=== PATIENT | female | born 1990 | race Caucasian/White ===

== ENCOUNTER 2016-05-08 12:22 | Emergency (ER) | payer SELFPAY ==
[2016-05-08 12:47] VITALS: BP 127/83
[2016-05-08] MEDS ORDERED: KETOROLAC TROMETHAMINE 60 MG/2 ML SDV IM ONE (12:47)
--- NOTE | 2016-05-08 12:49 | ER Document Report ---
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 Her back is really hurting now. Denies urinary/ bowel incontinence/retention, denies numbness/tingling. Denies trauma or falling. Reports she does a lot of awkward moves that is hard on her back. Denies pmh of back injury, cancers, weight loss. 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 IN LAST 30 DAYS: No - HEENT HEENT: Atraumatic, Normocephalic - NECK Neck: Normal Inspection, Supple. negative: Lymphadenopathy-Left, Lymphadenopathy-Right - RESPIRATORY Respiratory: Breath Sounds Normal, No Respiratory Distress - CARDIOVASCULAR Cardiovascular: Regular Rate, Regular Rhythm - GI/ABDOMEN Gastrointestinal: Abdomen Soft, Abdomen Non-Tender - BACK Back: Normal Inspection - no obvious deformity, c/o entire back ttp from low back to inbetween shoulders. good distal movement and sensation, no weakness. Course - Re-evaluation Re-evalutation: 05/08/16 13:01 pt instructed to fu in one week for recheck, do not dance if still hurting. no s /s cauda equina. Discharge - Discharge Clinical Impression: elevated blood pressure Back pain Qualifiers: Back pain location: low back pain Chronicity: acute Back pain laterality: unspecified Sciatica presence: without sciatica Qualified Code(s): M54.5 - Low back pain Condition: Stable Disposition: HOME, SELF-CARE Instructions: Ice Packs ([facility]), Low Back Pain ([facility]), Muscle Strain ([facility]), Steroid Medication, Muscle Relaxers ([facility]), Anti-Inflammatory Medication ([facility]) Additional Instructions: *You have been evaluated for back pain *Take medication as prescribed *Rest/Ice- heat packs as directed *Follow up with a primary care provider for recheck within one week *Return to ED for worsening condition, changes, needs Prescriptions: Cyclobenzaprine HCl [Flexeril 10 Mg Tablet] 10 mg PO TID #30 tablet Naproxen 500 mg PO BID #20 tablet Prednisone [Deltasone 10 mg Tablet] 10 mg PO ASDIR PRN #21 tablet PRN Reason: Forms: Elevated Blood Pressure, Return to Work
== END 2016-05-08 13:00 | disposition home or self-care (01) ==
LOC: ER 12:22
DX: M54.5 Low back pain (principal); R03.0 Elevated blood-pressure reading, without diagnosis of hypertension; F17.210 Nicotine dependence, cigarettes, uncomplicated
CPT/HCPCS: 99283; 96372; J1885

== ENCOUNTER 2016-05-14 14:40 | Emergency (ER) | payer SELFPAY ==
--- NOTE | 2016-05-14 15:11 | ER Document Report ---
ED Medical Screen (RME) - General Stated Complaint: TOOTH PAIN Notes: Patient is a 25-year-old female presents emergency Department with left cheek swelling and tooth pain since Saturday. Patient is been taking Motrin at home with minimal relief in her symptoms. She denies any chills but admits to feeling warm at [employer] check a temperature at home. Patient states that she broke a tooth about a month ago but then on Saturday was eating popcorn and record. Patient admits to severe pain, swelling as well as cheek swelling difficulty opening her mouth. Patient is able to swallow fluids. Denies any drug use TRAVEL OUTSIDE OF THE U[place] IN LAST 30 DAYS: No - Related Data Allergies/Adverse Reactions: No Known Allergies Allergy (Verified 05/14/16 15:09) Past Medical History - Social History Family history: Reviewed & Not Pertinent Pulmonary Medical History: Reports: Hx Asthma Renal/ Medical History: Reports: Hx Ovarian Cysts. Denies: Hx Peritoneal Dialysis Past Surgical History: Reports: Other - eye surgery - Immunizations Immunizations up to date: Yes Hx Diphtheria, Pertussis, Tetanus Vaccination: Yes - 2012 Physical Exam - Vital signs Vitals: Temp Pulse Resp BP Pulse Ox 98.0 F 97 16 141/74 H 98 05/14/16 15:01 05/14/16 15:01 05/14/16 15:01 05/14/16 15:01 05/14/16 15:01 Course - Vital Signs Vital signs: Temp Pulse Resp BP Pulse Ox 98.0 F 97 16 141/74 H 98 05/14/16 15:01 05/14/16 15:01 05/14/16 15:01 05/14/16 15:01 05/14/16 15:01
[2016-05-14] MEDS ORDERED: OXYCODONE-ACETAMINOPHEN 5-325 MG TABLET PO ONE (15:12)
[2016-05-14 16:23] LABS: ABSOLUTE EOSINOPHILS # (AUTO) 0.2 10^3/uL (0.0-0.6); ABSOLUTE LYMPHOCYTES (AUTO) 3.5 10^3/uL (0.5-4.7); ABSOLUTE MONOCYTES (AUTO) 0.8 10^3/uL (0.1-1.4); ABSOLUTE NEUT (AUTO) 4.9 10^3/uL (1.7-8.2); BASOPHILS % (AUTO) 0.2 % (0-2); EOSINOPHILS % (AUTO) 1.6 % (0-6); HEMATOCRIT 40.9 % (36.0-47.0); HEMOGLOBIN 14.6 g/dL (12.0-15.5); HGB HCT DIFFERENCE 2.9; LYMPHOCYTES % (AUTO) 37.4 % (13-45); MEAN CORPUSCULAR HEMOGLOBIN 34.7 pg (27.0-33.4); MEAN CORPUSCULAR HGB CONC 35.7 g/dL (32.0-36.0); MEAN CORPUSCULAR VOLUME 97 fl (80-97); MONOCYTES % (AUTO) 8.2 % (3-13); RED BLOOD COUNT 4.21 10^6/uL (3.72-5.28); SEGMENTED NEUTROPHILS % (AUTO) 52.6 % (42-78); WHITE BLOOD COUNT 9.3 10^3/uL (4.0-10.5)
[2016-05-14 16:48] LABS: ALANINE AMINOTRANSFERASE 23 U/L (9-52); ALBUMIN 4.6 g/dL (3.5-5.0); ALKALINE PHOSPHATASE 74 U/L (38-126); ANION GAP 9 (5-19); ASPARTATE AMINO TRANSFERASE 18 U/L (14-36); BILIRUBIN,TOTAL 0.9 mg/dL (0.2-1.3); BLOOD UREA NITROGEN 13 mg/dL (7-20); CALCIUM 9.9 mg/dL (8.4-10.2); CARBON DIOXIDE 26 mmol/L (22-30); CHLORIDE 106 mmol/L (98-107); CREATININE RESULT 0.83 mg/dL (0.52-1.25); GLUCOSE 87 mg/dL (75-110); POTASSIUM 4.3 mmol/L (3.6-5.0); SODIUM 140.8 mmol/L (137-145); TOTAL PROTEIN 7.7 g/dL (6.3-8.2)
[2016-05-14 17:23] LABS: APPEARANCE,URINE CLOUDY; BILIRUBIN,URINE NEGATIVE (NEGATIVE); GLUCOSE, URINE NEGATIVE (NEGATIVE); KETONES,URINE NEGATIVE (NEGATIVE); LEUKOCYTE ESTERASE,URINE TRACE (NEGATIVE); NITRITE,URINE NEGATIVE (NEGATIVE); PROTEIN,URINE NEGATIVE (NEGATIVE); URINE SPECIFIC GRAVITY 1.016; UROBILINOGEN,URINE NEGATIVE mg/dL (<2.0)
[2016-05-14] MEDS ORDERED: CLINDAMYCIN 600 MG/D5W RTU 50 ML IV ONE (18:33)
[2016-05-14] MEDS ORDERED: HYDROCODONE/ACETAMINOPHEN 5-325 MG 6 TAB/DSPK PO PRN (20:08)
--- NOTE | 2016-05-14 20:09 | ER Document Report ---
ED General - General Chief Complaint: Toothache Stated Complaint: TOOTH PAIN TRAVEL OUTSIDE OF THE [place] IN LAST 30 DAYS: No - HPI Patient complains to provider of: facial swelling tooth pain Notes: Patient coming in for first swelling tooth pain ongoing for the last to 3 days. Patient states tooth pain prostate tooth #28 with right side facial swelling. No fevers or chills no nausea no vomiting patient denies any recent antibiotics. Patient states unable to follow-up with a dentist recently. Patient states able to eat soft diet and control her secretions. Patient has no drooling is otherwise able to carry on conversation with no changes upon my evaluation. - Related Data Allergies/Adverse Reactions: No Known Allergies Allergy (Verified 05/14/16 15:09) Past Medical History - Social History Smoking Status: Current Every Day Smoker Chew tobacco use (# tins/day): No Frequency of alcohol use: None Drug Abuse: None Family History: CAD - grandmother, Hypertension Patient has suicidal ideation: No Patient has homicidal ideation: No Pulmonary Medical History: Reports: Hx Asthma Renal/ Medical History: Reports: Hx Ovarian Cysts. Denies: Hx Peritoneal Dialysis Past Surgical History: Reports: Other - eye surgery - Immunizations Immunizations up to date: Yes Hx Diphtheria, Pertussis, Tetanus Vaccination: Yes - 2012 Review of Systems - Review of Systems Constitutional: No symptoms reported EENT: Other - Dental pain swelling Cardiovascular: No symptoms reported Respiratory: No symptoms reported Gastrointestinal: No symptoms reported Genitourinary: No symptoms reported Female Genitourinary: No symptoms reported Musculoskeletal: No symptoms reported Skin: No symptoms reported Hematologic/Lymphatic: No symptoms reported Neurological/Psychological: No symptoms reported Physical Exam - Vital signs Vitals: Temp Pulse Resp BP Pulse Ox 98.0 F 97 16 141/74 H 98 05/14/16 15:01 05/14/16 15:01 05/14/16 15:01 05/14/16 15:01 05/14/16 15:01 Interpretation: Normal - General General appearance: Appears well, Alert - HEENT Head: Normocephalic, Atraumatic Eyes: Normal Conjunctiva: Normal Cornea: Normal Pupils: PERRL Notes: Examination of the patient's CT showed diffuse poor dentition however patient does have that tooth #28 fracture tooth with some gingival cellulitis or is no direct abscess formation no drainage. Palpation of the right side of the patient's jaw is tender there is no skin changes no signs of overt cellulitis no palpable lymph nodes nopalpable submandibular glands no signs of any airway compromise - Respiratory Respiratory status: No respiratory distress Chest status: Nontender Breath sounds: Normal Chest palpation: Normal - Cardiovascular Rhythm: Regular Heart sounds: Normal auscultation Murmur: No - Abdominal Inspection: Normal Distension: No distension Bowel sounds: Normal Tenderness: Nontender Organomegaly: No organomegaly - Back Back: Normal, Nontender - Extremities General upper extremity: Normal inspection, Nontender, Normal color, Normal ROM , Normal temperature General lower extremity: Normal inspection, Nontender, Normal color, Normal ROM , Normal temperature, Normal weight bearing. No: Merlin's sign - Neurological Neuro grossly intact: Yes Cognition: Normal Orientation: AAOx4 [place] Coma Scale Eye Opening: Spontaneous [place] Coma Scale Verbal: Oriented [place] Coma Scale Motor: Obeys Commands Michael Coma Scale Total: 15 Speech: Normal Motor strength normal: LUE, RUE, LLE, RLE Sensory: Normal - Psychological Associated symptoms: Normal affect, Normal mood - Skin Skin Temperature: Warm Skin Moisture: Dry Skin Color: Normal Course - Re-evaluation Re-evalutation: 05/14/16 23:26 CT scans concern for infection there is no drainable abscess. Patient was given a dose of IV clindamycin. After calling [facility] I was able to find a oral surgeon at [facility] discussed case follow-up information was given to the patient at this time no need for transfer. Patient was encouraged to take her antibiotics return to the ER symptoms worsen. - Vital Signs Vital signs: Temp Pulse Resp BP Pulse Ox 98.7 F 72 18 128/85 H 100 05/14/16 22:02 05/14/16 22:02 05/14/16 22:02 05/14/16 22:02 05/14/16 22:02 - Laboratory Result Diagrams: 05/14/16 16:10 05/14/16 16:10 Laboratory results interpreted by me: 05/14/16 05/14/16 16:10 16:10 MCH 34.7 H Ur Leukocyte Esterase TRACE H Discharge - Discharge Clinical Impression: Dental infection Condition: Good Disposition: HOME, SELF-CARE Instructions: Clindamycin ([facility]), [facility], Oral Narcotic Medication ([facility]), Dentist Additional Instructions: Please take medications as prescribed. I did discuss your case with the oral maxillofacial surgery at [facility], Dr [facility]. You may use the information to follow-up at their dental school fees may incur. Please take your antibiotics as prescribed. Return to the ER symptoms worsen. Prescriptions: Ondansetron [Zofran Odt 4 mg Tablet] 4 mg PO Q4HP PRN #30 tab.rapdis PRN Reason: Clindamycin HCl [Cleocin 150 mg Capsule] 150 mg PO Q6 #40 capsule Hydrocodone Bit/Acetaminophen [Hydrocodon-Acetaminophen 5-325] 1 each PO Q6 #20 tablet Forms: Return to Work
[2016-05-14 22:04] VITALS: BP 128/85
== END 2016-05-14 22:00 | disposition home or self-care (01) ==
LOC: ER 14:40
DX: K04.7 Periapical abscess without sinus (principal); K08.89 Other specified disorders of teeth and supporting structures; J45.909 Unspecified asthma, uncomplicated; F17.200 Nicotine dependence, unspecified, uncomplicated
CPT/HCPCS: 36415; 70491; 80053; 81001; 81025; 85025; 87040; 96365; 99283

== ENCOUNTER 2016-08-08 08:18 | Emergency (ER) | payer SELFPAY ==
[2016-08-08] MEDS ORDERED: ACETAMINOPHEN 325 MG TABLET PO ONE (08:25)
[2016-08-08] MEDS ORDERED: BUPIVACAINE HCL 0.5 % INJ/PF 30 ML SDV INJ ONE (09:15)
--- NOTE | 2016-08-08 09:36 | ER Document Report ---
ED General - General Chief Complaint: Toothache Stated Complaint: TOOTHACHE Time Seen by Provider: 08/08/16 08:47 Mode of Arrival: Ambulatory Information source: Patient Notes: 25-year-old female presents with complaints of dental pain in the right upper molar. Patient notes has been fractured for a well started hurting over the past few days. denies any fevers or chills TRAVEL OUTSIDE OF THE [place] IN LAST 30 DAYS: No - HPI Onset: Other Onset/Duration: Persistent Quality of pain: Achy Severity: Mild Pain Level: 1 Associated symptoms: Other Exacerbated by: Food Relieved by: Denies Similar symptoms previously: Yes Recently seen / treated by doctor: Yes - Related Data Allergies/Adverse Reactions: No Known Allergies Allergy (Verified 05/14/16 15:09) Past Medical History - Social History Smoking Status: Current Every Day Smoker Cigarette use (# per day): Yes Chew tobacco use (# tins/day): No Smoking Education Provided: No Family History: CAD - grandmother, Hypertension Patient has suicidal ideation: No Patient has homicidal ideation: No Pulmonary Medical History: Reports: Hx Asthma Renal/ Medical History: Reports: Hx Ovarian Cysts. Denies: Hx Peritoneal Dialysis Past Surgical History: Reports: Other - eye surgery - Immunizations Immunizations up to date: Yes Hx Diphtheria, Pertussis, Tetanus Vaccination: Yes - 2012 Review of Systems - Review of Systems Notes: PHYSICAL EXAMINATION: GENERAL: Well-appearing, well-nourished and in no acute distress. HEAD: Atraumatic, normocephalic. EYES: Pupils equal round and reactive to light, extraocular movements intact, conjunctiva are normal. ENT: Right upper molar is fractured no abscesses noted Nares patent, oropharynx clear without exudates. Moist mucous membranes. NECK: Normal range of motion, supple without lymphadenopathy LUNGS: Breath sounds clear to auscultation bilaterally and equal. No wheezes rales or rhonchi. HEART: Regular rate and rhythm without murmurs ABDOMEN: Soft, nontender, nondistended abdomen. No guarding, no rebound. No masses appreciated. Female : deferred Musculoskeletal: Normal range of motion, no pitting or edema. No cyanosis. NEUROLOGICAL: Cranial nerves grossly intact. Normal speech, normal gait. Normal sensory, motor exams PSYCH: Normal mood, normal affect. SKIN: Warm, Dry, normal turgor, no rashes or lesions noted. Physical Exam - Vital signs Vitals: Temp Pulse Resp BP Pulse Ox 98.1 F 88 20 123/79 95 08/08/16 08:26 08/08/16 08:26 08/08/16 08:26 08/08/16 08:26 08/08/16 08:26 Course - Re-evaluation Re-evalutation: 08/08/16 09:36 Patient was given an infraorbital nerve block with complete resolution of pain. She will be discharged home on antibiotics and follow-up with dentistry. Patient states she one and will do so Patient shifted to return if there are any other concerns After performing a Medical Screening Examination, I estimate there is LOW risk for a DEEP SPACE INFECTION (e.g., LEE ANN'S ANGINA OR RETROPHARYNGEAL ABSCESS), MENINGITIS, INTRACRANIAL HEMORRHAGE, or AIRWAY COMPROMISE, thus I consider the discharge disposition reasonable. Also, there is no evidence or peritonitis, sepsis, or toxicity. I have reevaluated this patient multiple times and no significant life threatening changes are noted. The patient and I have discussed the diagnosis and risks, and we agree with discharging home with close follow-up with the understanding that symptoms and presentations can change. We also discussed returning to the Emergency Department immediately if new or worsening symptoms occur. We have discussed the symptoms which are most concerning (e.g., changing or worsening pain, trouble swallowing or breathing, neck stiffness or fever) that necessitate immediate return. - Vital Signs Vital signs: Temp Pulse Resp BP Pulse Ox 98.1 F 88 20 123/79 95 08/08/16 08:26 08/08/16 08:26 08/08/16 08:26 08/08/16 08:26 08/08/16 08:26 Procedures - Additional Procedures infraorbital nerve block Time performed: 09:30 - using 5 mL of 0.5% Sensorcaine with complete resolution of dental pain patient no complication Discharge - Discharge Clinical Impression: Pain, dental Condition: Stable Disposition: HOME, SELF-CARE Instructions: Toothache ([facility]) Additional Instructions: Please follow-up with dentistry for reevaluation Prescriptions: Penicillin V Potassium [Penicillin Vk 500 mg Tablet] 500 mg PO Q6 #40 tablet
[2016-08-08 09:45] VITALS: BP 118/61
== END 2016-08-08 09:45 | disposition home or self-care (01) ==
LOC: ER 08:18
PROC: 3E0T3BZ Introduction of Anesthetic Agent into Peripheral Nerves and Plexi, Percutaneous Approach (ICD-10-PCS; principal; 2016-08-08)
DX: K08.89 Other specified disorders of teeth and supporting structures (principal); F17.210 Nicotine dependence, cigarettes, uncomplicated; J45.909 Unspecified asthma, uncomplicated
CPT/HCPCS: 99282

== ENCOUNTER 2016-09-28 19:18 | Emergency (ER) | payer SELFPAY ==
[2016-09-28] MEDS ORDERED: OXYCODONE-ACETAMINOPHEN 5-325 MG TABLET PO ONE (21:20)
[2016-09-28] MEDS ORDERED: PENICILLIN V POTASSIUM 500 MG TABLET PO ONE (21:20)
[2016-09-28] MEDS ORDERED: IBUPROFEN 800 MG TABLET PO ONE (21:20)
--- NOTE | 2016-09-28 21:22 | ER Document Report ---
HPI - HPI Patient complains to provider of: dental pain Onset: Other - 2 days Onset/Duration: Gradual Quality of pain: Achy Pain Level: 5 Context: Pt complains of dental pain to right upper tooth for the past 2 days. Patient denies any fever or facial swelling. Associated Symptoms: Other - dental pain. denies: Fever Exacerbated by: Denies Relieved by: Denies Similar symptoms previously: Yes Recently seen / treated by doctor: No - ROS ROS below otherwise negative: Yes Systems Reviewed and Negative: Yes All other systems reviewed and negative - CONSTITUTIONAL Constitutional: DENIES: Fever, Chills - EENT EENT: DENIES: Ear Pain Notes: dental - NEURO Neurology: DENIES: Headache - GASTROINTESTINAL Gastrointestinal: DENIES: Patient vomiting - REPRODUCTIVE Reproductive: DENIES: : - MUSCULOSKELETAL Musculoskeletal: DENIES: Back Pain, Neck Pain - DERM Skin Color: Normal Skin Problems: None Past Medical History - General Information source: Patient - Social History Smoking Status: Current Every Day Smoker Frequency of alcohol use: None Drug Abuse: None 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 Denies: Hx Peritoneal Dialysis Past Surgical History: Reports: Other - eye surgery - Immunizations Immunizations up to date: Yes Hx Diphtheria, Pertussis, Tetanus Vaccination: Yes - 2013 Vertical Provider Document - CONSTITUTIONAL Agree With Documented VS: Yes Exam Limitations: No Limitations General Appearance: WD/WN, No Apparent Distress - INFECTION CONTROL TRAVEL OUTSIDE OF THE [place] IN LAST 30 DAYS: No - HEENT HEENT: Atraumatic, Normocephalic Mouth Diagram: 1 - tenderness, dental decay, no trismus - NECK Neck: Normal Inspection, Supple. negative: Lymphadenopathy-Left, Lymphadenopathy-Right - RESPIRATORY Respiratory: Breath Sounds Normal, No Respiratory Distress O2 Sat by Pulse Oximetry: 99 - CARDIOVASCULAR Cardiovascular: Regular Rate, Regular Rhythm - MUSCULOSKELETAL/EXTREMETIES Musculoskeletal/Extremeties: MAEW - NEURO Level of Consciousness: Awake, Alert, Appropriate Motor/Sensory: No Motor Deficit - DERM Integumentary: Warm, Dry, No Rash Course - Vital Signs Vital signs: Temp Pulse Resp BP Pulse Ox 98.5 F 105 H 18 126/78 H 99 09/28/16 19:33 09/28/16 19:33 09/28/16 19:33 09/28/16 19:33 09/28/16 19:33 Discharge - Discharge Clinical Impression: Toothache Condition: Stable Disposition: HOME, SELF-CARE Instructions: Oral Narcotic Medication ([facility]), Toothache ([facility]), Penicillin V K ( [facility]) Additional Instructions: Return immediately for any new or worsening symptoms Followup with your primary care provider, call tomorrow to make a followup appointment Follow-up with the dental care provider, call Saturday for an appointment Prescriptions: Acetaminophen with Codeine [Acetaminophen-Cod #3 Tablet] 1 each PO Q6 PRN #15 tablet PRN Reason: Naproxen [Naprosyn 250 Nmg Tablet] 1 tab PO BID #14 tablet Penicillin V Potassium [Penicillin Vk 500 mg Tablet] 500 mg PO BID #20 tablet Referrals: [facility] [Provider Group] - Follow up as needed
[2016-09-28 21:29] VITALS: BP 114/73
== END 2016-09-28 21:35 | disposition home or self-care (01) ==
LOC: ER 19:18
DX: K02.9 Dental caries, unspecified (principal); K08.89 Other specified disorders of teeth and supporting structures; J45.909 Unspecified asthma, uncomplicated; F17.200 Nicotine dependence, unspecified, uncomplicated
CPT/HCPCS: 99282

== ENCOUNTER 2017-10-28 23:37 | Emergency (ER) | payer SELFPAY ==
[2017-10-28 23:45] VITALS: BP 130/81
[2017-10-29] MEDS ORDERED: NAPROXEN 250 MG TABLET PO ONE (00:41)
--- NOTE | 2017-10-29 00:41 | ER Document Report ---
ED General - General Chief Complaint: Leg Pain Stated Complaint: LEFT LEG PAIN Time Seen by Provider: 10/29/17 00:23 TRAVEL OUTSIDE OF THE [place] IN LAST 30 DAYS: No - HPI Notes: 27-year-old female who presents with back and leg pain. 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 Couple weeks ago she had injured her leg and felt a pop near her right distal thigh. She improved slightly but then reinjured it again over the last day or 2. Also complains of left lower back pain that radiates down her left leg. States sometimes her big toe goes numb if she lays in bed for a while the same position. No other injury. No bowel or bladder dysfunction, no unplanned weight loss, no fever, chills or sweats. No other modifying factors, no other associated symptoms, no other provocative or palliative factors. - Related Data Allergies/Adverse Reactions: No Known Allergies Allergy (Verified 02/05/17 02:13) Past Medical History - Social History Smoking Status: Smoker,Current Status Unk Family History: CAD - grandmother, Hypertension Pulmonary Medical History: Reports: Hx Asthma Renal/ Medical History: Reports: Hx Ovarian Cysts. Denies: Hx Peritoneal Dialysis Past Surgical History: Reports: Other - eye surgery - Immunizations Immunizations up to date: Yes Hx Diphtheria, Pertussis, Tetanus Vaccination: Yes - 2012 Review of Systems - Review of Systems Notes: Review of systems as in history of present illness, otherwise no significant headache, chest pain, abdominal pain. Physical Exam - Vital signs Vitals: Temp Pulse Resp BP Pulse Ox 98.4 F 65 16 130/81 H 98 10/28/17 23:45 10/28/17 23:45 10/28/17 23:45 10/28/17 23:45 10/28/17 23:45 - Notes Notes: General: Well devloped, no acute distress. HEENT: Normocephalic, atraumatic. Pupils equal round reactive to light. Mucosa moist. No JVD. Chest: No trauma, normal excursion. Respiratory: Good air exchange, normal excursion. Cardiac: Regular rhythm Abdomen: Soft, benign. Nondistended. Back: No asymmetry or gross abnormality. Moderate left paralumbar tenderness. Motor: Grossly normal power and tone. Mood by pain in flexion and extension at the lower extremity knee and hip on the left Neurologic: Alert, nonfocal. DTRs 2+ symmetric, sensation is intact and symmetric in lower extremities when I evaluated. Vascular: Well perfused Skin: No petechiae or purpura Remedies: Muscular tenderness about the distal hamstrings insertion Course - Re-evaluation Re-evalutation: 10/29/17 01:02 Appearing female the after mentioned symptoms with regard to her back pain, may be lumbar strain versus disc disease. With regard to her leg, I see no bony point tenderness, no ligamentous laxity or instability. Suspect some type of hamstring strain. Will treat with steroids, Flexeril, NSAIDs. Will treat with knee immobilizer crutches for comfort. Outpatient follow-up. May benefit from PT versus orthopedic surgery follow-up. - Vital Signs Vital signs: Temp Pulse Resp BP Pulse Ox 98.4 F 65 16 130/81 H 98 10/28/17 23:45 10/28/17 23:45 10/28/17 23:45 10/28/17 23:45 10/28/17 23:45 Discharge - Discharge Clinical Impression: Back pain Qualifiers: Back pain location: low back pain Chronicity: acute Back pain laterality: left Sciatica presence: with sciatica Sciatica laterality: sciatica of left side Qualified Code(s): M54.42 - Lumbago with sciatica, left side Hamstring muscle strain Qualifiers: Encounter type: initial encounter Laterality: left Qualified Code(s): S76.312A - Strain of muscle, fascia and tendon of the posterior muscle group at thigh level, left thigh, initial encounter Instructions: Low Back Pain ([facility]), Muscle Strain ([facility]), Tendon Strain ([facility]) Prescriptions: Cyclobenzaprine HCl [Flexeril 10 mg Tablet] 10 mg PO TIDP PRN #15 tab NS PRN Reason: Methylprednisolone [Medrol Dosepack (4 mg/Tab) 21 Tab/Dosepak] 4 mg PO ASDIR PRN #21 tab.ds.pk PRN Reason: Naproxen 500 mg PO Q12 PRN #12 tablet PRN Reason:
== END 2017-10-29 01:13 | disposition home or self-care (01) ==
LOC: ER 23:37
DX: M54.42 Lumbago with sciatica, left side (principal); R20.0 Anesthesia of skin; J45.909 Unspecified asthma, uncomplicated
CPT/HCPCS: 99283; L1830

== ENCOUNTER 2018-05-07 20:09 | Emergency (ER) | payer SELFPAY | END 2018-05-07 21:13 | disposition left against medical advice (07) | LOC: ER 20:09 | DX: Z53.21 Procedure and treatment not carried out due to patient leaving prior to being seen by health care provider (principal); R10.9 Unspecified abdominal pain ==

== ENCOUNTER 2019-03-15 08:16 | Emergency (ER) | payer SELFPAY ==
[2019-03-15 08:26] VITALS: BP 128/83
--- NOTE | 2019-03-15 09:59 | ER Document Report ---
ED Skin Rash/Insect Bite/Abscs - General Chief Complaint: Rash Stated Complaint: RASH Time Seen by Provider: 03/15/19 09:59 Primary Care Provider: CHELY BURT DO [ACTIVE STAFF] - Follow up as needed (for dermatology follow up) TRAVEL OUTSIDE OF THE [place] IN LAST 30 DAYS: No - HPI Notes: 28 year old female to the ED with C/O itchy rash to bilateral webbing of her hands that has been ongoing this week. She just moved into a new home this week and she states she didn't realize how dirty it was. She started to have itching after moving in. Denies any fevers, chills, NVD, abd pain, headache, chest pain, SOB. - Related Data Allergies/Adverse Reactions: No Known Allergies Allergy (Verified 03/15/19 08:37) Home Medications: benadryl Past Medical History - General Information source: Patient - Social History Smoking Status: Current Every Day Smoker Chew tobacco use (# tins/day): No Frequency of alcohol use: None Drug Abuse: None Family History: CAD - grandmother, Hypertension Patient has suicidal ideation: No Patient has homicidal ideation: No Pulmonary Medical History: Reports: Hx Asthma Renal/ Medical History: Reports: Hx Ovarian Cysts. Denies: Hx Peritoneal Dialysis Past Surgical History: Reports: Other - eye surgery - Immunizations Immunizations up to date: Yes Hx Diphtheria, Pertussis, Tetanus Vaccination: Yes - 2012 Review of Systems - Review of Systems Constitutional: denies: Chills, Fever EENT: No symptoms reported Cardiovascular: denies: Chest pain, Dyspnea, Syncope, Dizziness, Lightheaded Respiratory: denies: Cough, Short of breath Gastrointestinal: denies: Abdominal pain, Diarrhea, Nausea, Vomiting Genitourinary: No symptoms reported Skin: See HPI, Rash Hematologic/Lymphatic: No symptoms reported Neurological/Psychological: No symptoms reported -: Yes All other systems reviewed and negative Physical Exam - Vital signs Vitals: Temp Pulse Resp BP Pulse Ox 98.5 F 96 18 128/83 H 96 03/15/19 08:25 03/15/19 08:25 03/15/19 08:25 03/15/19 08:25 03/15/19 08:25 Interpretation: Normal - General General appearance: Appears well, Alert - HEENT Head: Normocephalic, Atraumatic Eyes: Normal Pupils: PERRL - Respiratory Respiratory status: No respiratory distress Chest status: Nontender Breath sounds: Normal Chest palpation: Normal - Cardiovascular Rhythm: Regular Heart sounds: Normal auscultation Murmur: No - Psychological Associated symptoms: Normal affect, Normal mood - Skin Skin Temperature: Warm Skin Moisture: Dry Skin Color: Normal Skin irregularity: Rash - there are several burrowing papules to the bilateral hands to the webbing. There is no streaking erythema. There are no vesicles. Noted excoriations to the hands. Course - Re-evaluation Re-evalutation: Impression: Scabies. Will start on Permethrin cream. Have patient apply today and leave on for 8-14 hours and then rinse off. If symptoms persist, will have her reapply. Encouraged her to either have home extensively cleansed or find [facility] housing. Patient agrees with the plan. - Vital Signs Vital signs: Temp Pulse Resp BP Pulse Ox 98.5 F 96 18 128/83 H 96 03/15/19 08:37 03/15/19 08:25 03/15/19 08:37 03/15/19 08:25 03/15/19 08:37 Discharge - Discharge Clinical Impression: Scabies Condition: Stable Disposition: HOME, SELF-CARE Instructions: Scabies ([facility]) Additional Instructions: USE PERMETHRIN CREAM WITHOUT FAIL. FOLLOW UP WITH DERMATOLOGY IF SYMPTOMS PERSIST BEYOND ONE WEEK AND TWO USES OF THE PERMETHRIN CREAM. Forms: Return to Work Referrals: CHELY BURT DO [ACTIVE STAFF] - Follow up as needed (for dermatology follow up)
[2019-03-16] MEDS ORDERED: PERMETHRIN 5% CREAM 60 GM TP ONE (10:50)
== END 2019-03-15 11:06 | disposition home or self-care (01) ==
LOC: ER 08:16
DX: B86 Scabies (principal); F17.200 Nicotine dependence, unspecified, uncomplicated; J45.909 Unspecified asthma, uncomplicated
CPT/HCPCS: 99282

== ENCOUNTER 2019-08-05 13:09 | Emergency (ER) | payer SELFPAY ==
[2019-08-05] MEDS ORDERED: KETOROLAC TROMETHAMINE INJ/PF 30 MG/1 ML SDV IV ONE (13:30)
--- NOTE | 2019-08-05 13:31 | ER Document Report ---
ED Medical Screen (RME) - General Chief Complaint: Flank Pain Stated Complaint: RIGHT SIDE PAIN Time Seen by Provider: 08/05/19 13:27 Mode of Arrival: Ambulatory Information source: Patient Notes: Patient presents with left flank pain that started yesterday. Patient denies any fever, nausea vomiting or diarrhea. Patient denies any urinary symptoms. I have greeted and performed a rapid initial assessment of this patient. A comprehensive ED assessment and evaluation of the patient, analysis of test results and completion of the medical decision making process will be conducted by additional ED providers. TRAVEL OUTSIDE OF THE [place] IN LAST 30 DAYS: No - Related Data Allergies/Adverse Reactions: No Known Allergies Allergy (Verified 08/05/19 13:27) Home Medications: flonase, benadryl Past Medical History - Social History Chew tobacco use (# tins/day): No Frequency of alcohol use: None Drug Abuse: Marijuana Family history: Reviewed & Not Pertinent Pulmonary Medical History: Reports: Hx Asthma Renal/ Medical History: Reports: Hx Ovarian Cysts. Denies: Hx Peritoneal Dialysis Past Surgical History: Reports: Other - eye surgery - Immunizations Immunizations up to date: Yes Hx Diphtheria, Pertussis, Tetanus Vaccination: Yes - 2012 Physical Exam - Vital signs Vitals: Temp Pulse Resp BP Pulse Ox 98.0 F 82 18 127/84 H 97 08/05/19 13:12 08/05/19 13:12 08/05/19 13:12 08/05/19 13:12 08/05/19 13:12 - Back Back: CVA tenderness - left Course - Vital Signs Vital signs: Temp Pulse Resp BP Pulse Ox 98.0 F 82 18 127/84 H 97 08/05/19 13:28 08/05/19 13:12 08/05/19 13:12 08/05/19 13:12 08/05/19 13:12
[2019-08-05 13:54] LABS: ABSOLUTE EOSINOPHILS # (AUTO) 0.1 10^3/uL (0.0-0.6); ABSOLUTE LYMPHOCYTES (AUTO) 2.2 10^3/uL (0.5-4.7); ABSOLUTE MONOCYTES (AUTO) 0.8 10^3/uL (0.1-1.4); ABSOLUTE NEUT (AUTO) 8.6 10^3/uL (1.7-8.2); BASOPHILS % (AUTO) 0.4 % (0-2); HEMATOCRIT 41.1 % (36.0-47.0); HEMOGLOBIN 14.7 g/dL (12.0-15.5); LYMPHOCYTES % (AUTO) 18.4 % (13-45); MEAN CORPUSCULAR HEMOGLOBIN 34.3 pg (27.0-33.4); MEAN CORPUSCULAR HGB CONC 35.9 g/dL (32.0-36.0); MEAN CORPUSCULAR VOLUME 96 fl (80-97); MONOCYTES % (AUTO) 7.2 % (3-13); PLATELET COUNT 277 10^3/uL (150-450); RED CELL DISTRIBUTION WIDTH 12.2 % (11.5-14.0); TOTAL CELLS COUNTED % (AUTO) 100 %; WHITE BLOOD COUNT 11.7 10^3/uL (4.0-10.5)
[2019-08-05 13:57] LABS: APPEARANCE,URINE SLIGHTLY-CLOUDY; BILIRUBIN,URINE NEGATIVE (NEGATIVE); COLOR,URINE YELLOW; GLUCOSE, URINE NEGATIVE (NEGATIVE); KETONES,URINE NEGATIVE (NEGATIVE); LEUKOCYTE ESTERASE,URINE SMALL (NEGATIVE); NITRITE,URINE POSITIVE (NEGATIVE); PROTEIN,URINE 30 mg/dL (NEGATIVE); URINE SPECIFIC GRAVITY 1.011; UROBILINOGEN,URINE NEGATIVE mg/dL (<2.0)
[2019-08-05 14:09] LABS: ALBUMIN 4.6 g/dL (3.5-5.0); ALKALINE PHOSPHATASE 58 U/L (38-126); ANION GAP 9 (5-19); ASPARTATE AMINO TRANSFERASE 24 U/L (14-36); BILIRUBIN,TOTAL 0.9 mg/dL (0.2-1.3); BLOOD UREA NITROGEN 11 mg/dL (7-20); CALCIUM 9.7 mg/dL (8.4-10.2); CARBON DIOXIDE 24 mmol/L (22-30); CHLORIDE 106 mmol/L (98-107); GLUCOSE 102 mg/dL (75-110); TOTAL PROTEIN 8.2 g/dL (6.3-8.2)
[2019-08-05] MEDS ORDERED: CEFTRIAXONE 1 GM/D5W RTU 1 GM/50 ML RTUPB IV ONE (14:37)
--- NOTE | 2019-08-05 14:53 | ER Document Report ---
ED General - General Chief Complaint: Flank Pain Stated Complaint: RIGHT SIDE PAIN Time Seen by Provider: 08/05/19 13:27 Mode of Arrival: Ambulatory TRAVEL OUTSIDE OF THE [place] IN LAST 30 DAYS: No - HPI Notes: Patient is a 28-year-old female who presents to the emergency department for evaluation of left flank pain. Started yesterday. She states it was gradual in onset, this morning it got much worse. She is never had any pain like this in the past. She rates it a 9 out of 10. She denies any fevers or chills. No nausea or vomiting. No urinary symptoms. She did have some constipation, but states she had a normal bowel movement yesterday. She denies any possibility of . - Related Data Allergies/Adverse Reactions: No Known Allergies Allergy (Verified 08/05/19 13:27) Home Medications: flonase, benadryl Past Medical History - General Information source: Patient - Social History Smoking Status: Current Every Day Smoker Chew tobacco use (# tins/day): No Frequency of alcohol use: None Drug Abuse: Marijuana Family History: CAD - grandmother, Hypertension, Other - Kidney stone Patient has homicidal ideation: No Pulmonary Medical History: Reports: Hx Asthma Renal/ Medical History: Reports: Hx Ovarian Cysts. Denies: Hx Peritoneal Dialysis Past Surgical History: Reports: Other - eye surgery - Immunizations Immunizations up to date: Yes Hx Diphtheria, Pertussis, Tetanus Vaccination: Yes - 2012 Review of Systems - Review of Systems Genitourinary: See HPI -: Yes All other systems reviewed and negative Physical Exam - Vital signs Vitals: Temp Pulse Resp BP Pulse Ox 98.0 F 82 18 127/84 H 97 08/05/19 13:12 08/05/19 13:12 08/05/19 13:12 08/05/19 13:12 08/05/19 13:12 - Notes Notes: This is a 28-year-old female appears her stated age in a mild amount of distress. She is tearful. Vital signs reviewed, please refer to chart. Head is normocephalic, atraumatic. Pupils equal round, reactive to light. Neck is supple without meningismus. Heart is regular rate and rhythm. Lungs are clear to auscultation bilaterally. Abdomen is soft, mildly tender in the left upper quadrant without rebound or guarding positive left-sided CVA tenderness. Bandar, normoactive bowel sounds throughout. Extremities without cyanosis, clubbing. Posterior calves are nontender. Peripheral pulses are equal. Skin is warm and dry. Patient is awake, alert, neurological exam is nonfocal. Course - Re-evaluation Re-evalutation: 08/05/19 14:52 Patient presents to the emergency department for evaluation. She had laboratory investigations and imaging is ordered through triage. It does seem that she has urinary tract infection, urine was sent for culture. Rocephin was ordered. I am concerned about a con commitment stone in the light of the patient's significant pain. If this is simple pyelonephritis, I do believe it is reasonab le to discharge the patient home on oral antibiotics, she has no other significant medical comorbidities. We will try and help her pain with Toradol, patient is stable at this time, we will continue to monitor. 08/05/19 16:[address] scan fails to reveal any signs of obstructive stone or hydro nephrosis. I suspect this is all pyelonephritis. Again she has no significant comorbidities, I do believe that outpatient treatment is appropriate. We will send her home with antibiotics. She is to follow-up with primary care provider this week, return to the ED with worsening or new concerning symptoms of any sort. The patient is reminded that she should have her urine rechecked next week. She is feeling improved and is amenable to discharge. - Vital Signs Vital signs: Temp Pulse Resp BP Pulse Ox 98.0 F 82 18 127/84 H 97 08/05/19 13:28 08/05/19 13:12 08/05/19 13:12 08/05/19 13:12 08/05/19 13:12 - Laboratory Result Diagrams: 08/05/19 13:30 08/05/19 13:30 Laboratory results interpreted by me: 08/05/19 08/05/19 13:30 13:30 WBC 11.7 H MCH 34.3 H Absolute Neuts (auto) 8.6 H Urine Protein 30 H Urine Blood MODERATE H Urine Nitrite POSITIVE H Ur Leukocyte Esterase SMALL H - Diagnostic Test Radiology reviewed: Reports reviewed Radiology results interpreted by me: 08/05/19 16:26 Abdomen/Pelvis CT 08/05/19 14:37 IMPRESSION: NO SIGNIFICANT OR ACUTE PROCESS IN THE ABDOMEN OR PELVIS. Discharge - Discharge Clinical Impression: Pyelonephritis Condition: Stable Disposition: HOME, SELF-CARE Instructions: Levofloxacin, Toradol Injection ([facility]), Pyelonephritis ([facility]) Additional Instructions: Take all the antibiotic as prescribed until gone. Have your urine rechecked next week. Tylenol or ibuprofen at home as needed for pain. If you do not see improvement in the next 48 hours, you develop fevers, vomiting, or any other new or concerning symptoms, please return immediately to the ER for further evaluation. Otherwise, follow-up with your primary care provider next week.
[2019-08-05] MEDS ORDERED: MORPHINE SULFATE 10 MG/ML INJ IV ONE (15:56)
[2019-08-05] MEDS ORDERED: ONDANSETRON HCL INJ/PF 4 MG/2 ML SDV IV ONE (15:56)
--- NOTE | 2019-08-05 15:56 | RADIOLOGY REPORT (SQ) ---
EXAM DESCRIPTION: CT ABD/PELVIS NO ORAL OR IV IMAGES COMPLETED DATE/TIME: 08/05/2019 3:38 pm REASON FOR STUDY: L flank pain COMPARISON: CT abdomen pelvis 08/16/2008 TECHNIQUE: CT scan of the abdomen and pelvis performed without intravenous or oral contrast. Images reviewed with lung, soft tissue, and bone windows. Reconstructed coronal and sagittal MPR images revi ewed. All images stored on PACS. All CT scanners at this facility use dose modulation, iterative reconstruction, and/or weight based d osing when appropriate to reduce radiation dose to as low as reasonably achievable (ALARA). [facility]: Dose Right [facility]: CareDose [facility]: Dose Right [facility]: Teradose 4D [facility]: [employer] RADIATION DOSE: CT Rad equipment meets quality standard of care and radiation dose reduction techniq ues were employed. CTDIvol: 10.8 mGy. DLP: 569 mGy-cm.mGy. LIMITATIONS: None. FINDINGS: LOWER CHEST: No significant findings. No nodules or infiltrates. NON-CONTRASTED LIVER, SPLEEN, ADRENALS: Evaluation limited by lack of IV contrast. No identified sign ificant masses. PANCREAS: No masses. No peripancreatic inflammatory changes. GALLBLADDER: No identified stones by CT criteria. No inflammatory changes to suggest cholecystitis. RIGHT KIDNEY AND URETER: No suspicious masses. Assessment limited by lack of IV contrast. No signif icant calcifications. No hydronephrosis or hydroureter. LEFT KIDNEY AND URETER: No suspicious masses. Assessment limited by lack of IV contrast. No signifi cant calcifications. No hydronephrosis or hydroureter. AORTA AND RETROPERITONEUM: No aneurysm. No retroperitoneal masses or adenopathy. BOWEL AND PERITONEAL CAVITY: No obvious masses or inflammatory changes. No free fluid. APPENDIX: Normal. PELVIS, BLADDER, AND ABDOMINAL WALL:No abnormal masses. No free fluid. Bladder normal. BONES: No significant findings. OTHER: No other significant finding. IMPRESSION: NO SIGNIFICANT OR ACUTE PROCESS IN THE ABDOMEN OR PELVIS. COMMENT: Quality ID # [id number]: Final reports with documentation of one or more dose reduction techniques (e.g., Automated exposure control, adjustment of the mA and/or kV according to patient size, use of iterative reconstruction technique) TECHNICAL DOCUMENTATION: JOB ID: [id number] 2010 [employer]- All Rights Reserved Reading location - IP/workstation name: [email or web address]
[2019-08-05 17:27] VITALS: BP 124/74
== END 2019-08-05 17:25 | disposition home or self-care (01) ==
LOC: ER 13:09
DX: N12 Tubulo-interstitial nephritis, not specified as acute or chronic (principal); R10.9 Unspecified abdominal pain; F17.200 Nicotine dependence, unspecified, uncomplicated
CPT/HCPCS: 99284; 96372; 96361; 96374; 96375; 36415; 87086; 84703; 85025; 87088; 80053; 81001; 74176; J1885; J2270; J2405; J0696; 87186

== ENCOUNTER 2019-10-27 20:28 | Emergency (ER) | payer SELFPAY ==
--- NOTE | 2019-10-27 22:22 | ER Document Report ---
ED Medical Screen (RME) - General Chief Complaint: Flank Pain Stated Complaint: BACK AND FLANK PAIN Time Seen by Provider: 10/27/19 22:20 Mode of Arrival: Ambulatory Information source: Patient Notes: 29-year-old female presented to ED for complaint of right flank pain. She states this started last night. She states she was having a hard time sleeping. She states she was seen recently for left sided flank pain and she told was told she had a urinary tract infection but did not get the antibiotic because it was too expensive and she could not afford it. 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 She states does smoke 1/2 pack of cigarettes does not drink alcohol but does smoke weed. She states her menstrual period was a month ago. She is alert oriented respirations regular nonlabored speaking in full sentences. I have greeted and performed a rapid initial assessment of this patient. A comprehensive ED assessment and evaluation of the patient, analysis of test results and completion of medical decision making process will be conducted by an additional ED providers. TRAVEL OUTSIDE OF THE [place] IN LAST 30 DAYS: No - Related Data Allergies/Adverse Reactions: No Known Allergies Allergy (Verified 08/05/19 13:27) Past Medical History - Social History Family history: Reviewed & Not Pertinent Pulmonary Medical History: Reports: Hx Asthma Renal/ Medical History: Reports: Hx Ovarian Cysts. Denies: Hx Peritoneal Dialysis Past Surgical History: Reports: Other - eye surgery - Immunizations Immunizations up to date: Yes Hx Diphtheria, Pertussis, Tetanus Vaccination: Yes - 2012 Physical Exam - Vital signs Vitals: Temp Pulse Resp BP Pulse Ox 99.6 F 94 20 142/78 H 98 10/27/19 20:50 10/27/19 20:50 10/27/19 20:50 10/27/19 20:50 10/27/19 20:50 Course - Vital Signs Vital signs: Temp Pulse Resp BP Pulse Ox 99.6 F 94 20 142/78 H 98 10/27/19 20:50 10/27/19 20:50 10/27/19 20:50 10/27/19 20:50 10/27/19 20:50
[2019-10-27] MEDS ORDERED: ONDANSETRON 4 MG TAB.RAPDIS PO ONE (22:25)
[2019-10-27 23:18] LABS: ABSOLUTE LYMPHOCYTES (AUTO) 1.8 10^3/uL (0.5-4.7); ABSOLUTE NEUT (AUTO) 9.5 10^3/uL (1.7-8.2); BASOPHILS % (AUTO) 0.2 % (0-2); EOSINOPHILS % (AUTO) 0.2 % (0-6); HEMATOCRIT 41.3 % (36.0-47.0); HEMOGLOBIN 14.5 g/dL (12.0-15.5); LYMPHOCYTES % (AUTO) 14.8 % (13-45); MEAN CORPUSCULAR HEMOGLOBIN 33.8 pg (27.0-33.4); MEAN CORPUSCULAR HGB CONC 35.1 g/dL (32.0-36.0); MEAN CORPUSCULAR VOLUME 97 fl (80-97); MONOCYTES % (AUTO) 8.3 % (3-13); PLATELET COUNT 262 10^3/uL (150-450); RED BLOOD COUNT 4.28 10^6/uL (3.72-5.28); RED CELL DISTRIBUTION WIDTH 12.3 % (11.5-14.0); SEGMENTED NEUTROPHILS % (AUTO) 76.5 % (42-78); TOTAL CELLS COUNTED % (AUTO) 100 %; WHITE BLOOD COUNT 12.4 10^3/uL (4.0-10.5)
[2019-10-27 23:27] LABS: APPEARANCE,URINE CLOUDY; BILIRUBIN,URINE NEGATIVE (NEGATIVE); COLOR,URINE YELLOW; GLUCOSE, URINE NEGATIVE (NEGATIVE); KETONES,URINE 80 mg/dL (NEGATIVE); LEUKOCYTE ESTERASE,URINE LARGE (NEGATIVE); NITRITE,URINE POSITIVE (NEGATIVE); PROTEIN,URINE 30 mg/dL (NEGATIVE); URINE SPECIFIC GRAVITY 1.014; UROBILINOGEN,URINE NEGATIVE mg/dL (<2.0)
[2019-10-27 23:42] LABS: ALBUMIN 4.5 g/dL (3.5-5.0); ALKALINE PHOSPHATASE 57 U/L (38-126); ANION GAP 6 (5-19); ASPARTATE AMINO TRANSFERASE 21 U/L (14-36); BILIRUBIN,TOTAL 1.4 mg/dL (0.2-1.3); BLOOD UREA NITROGEN 12 mg/dL (7-20); CALCIUM 9.6 mg/dL (8.4-10.2); CARBON DIOXIDE 24 mmol/L (22-30); CHLORIDE 104 mmol/L (98-107); GLUCOSE 99 mg/dL (75-110); TOTAL PROTEIN 7.8 g/dL (6.3-8.2)
[2019-10-28] MEDS ORDERED: LIDOCAINE 1% INJ-PF (10 MG/ML) 30 ML SDV IM ONE (03:14)
[2019-10-28] MEDS ORDERED: CEFTRIAXONE INJ 1000 MG VIAL IM ONE (03:15)
[2019-10-28] MEDS ORDERED: HYDROCODONE/ACETAMINOPHEN 5-325 MG (6 TAB/ER DISP) PO PRN (03:51)
[2019-10-28 03:53] VITALS: BP 124/81
--- NOTE | 2019-10-28 03:54 | ER Document Report ---
ED GI/ - General Chief Complaint: Flank Pain Stated Complaint: BACK AND FLANK PAIN Time Seen by Provider: 10/27/19 22:20 Mode of Arrival: Ambulatory Information source: Patient Notes: Otherwise healthy 29-year-old female presents the emergency department concern for right flank pain. She states pain started last night. She reports that she had a recent diagnosis of urinary tract infection but never got her antibiotic filled and she states it was too expensive. She denies any fever, chills, nausea, vomiting or diarrhea. TRAVEL OUTSIDE OF THE [place] IN LAST 30 DAYS: No - Related Data Allergies/Adverse Reactions: No Known Allergies Allergy (Verified 08/05/19 13:27) Past Medical History - General Information source: Patient - Social History Smoking Status: Current Every Day Smoker Frequency of alcohol use: None Drug Abuse: Marijuana Family History: CAD - grandmother, Hypertension, Other - Kidney stone Patient has homicidal ideation: No Pulmonary Medical History: Reports: Hx Asthma Renal/ Medical History: Reports: Hx Ovarian Cysts. Denies: Hx Peritoneal Dialysis Past Surgical History: Reports: Other - eye surgery - Immunizations Immunizations up to date: Yes Hx Diphtheria, Pertussis, Tetanus Vaccination: Yes - 2012 Review of Systems - Review of Systems Constitutional: denies: Chills, Fever EENT: No symptoms reported Cardiovascular: No symptoms reported Respiratory: No symptoms reported Gastrointestinal: No symptoms reported Genitourinary: Dysuria, Flank pain Female Genitourinary: No symptoms reported Musculoskeletal: No symptoms reported Skin: No symptoms reported Hematologic/Lymphatic: No symptoms reported Neurological/Psychological: No symptoms reported Physical Exam - Vital signs Vitals: Temp Pulse Resp BP Pulse Ox 99.6 F 94 20 142/78 H 98 10/27/19 20:50 10/27/19 20:50 10/27/19 20:50 10/27/19 20:50 10/27/19 20:50 - Notes Notes: PHYSICAL EXAMINATION: GENERAL: Well-appearing, well-nourished and in no acute distress. HEAD: Atraumatic, normocephalic. EYES: Pupils equal round and reactive to light, extraocular movements intact, conjunctiva are normal. ENT: Nares patent, oropharynx clear without exudates. Moist mucous membranes. NECK: Normal range of motion, supple without lymphadenopathy LUNGS: Breath sounds clear to auscultation bilaterally and equal. No wheezes rales or rhonchi. HEART: Regular rate and rhythm without murmurs ABDOMEN: Soft, nontender, nondistended abdomen. No guarding, no rebound. No masses appreciated. Female : Right CVA tenderness. Musculoskeletal: Normal range of motion, no pitting or edema. No cyanosis. NEUROLOGICAL: Cranial nerves grossly intact. Normal speech, normal gait. Normal sensory, motor exams PSYCH: Normal mood, normal affect. SKIN: Warm, Dry, normal turgor, no rashes or lesions noted. Course - Re-evaluation Re-evalutation: Laboratory 10/27/19 10/27/19 10/27/19 22:53 22:53 22:53 WBC 12.4 H RBC 4.28 Hgb 14.5 Hct 41.3 MCV 97 MCH 33.8 H MCHC 35.1 RDW 12.3 Plt Count 262 Lymph % (Auto) 14.8 [place] % (Auto) 8.3 Eos % (Auto) 0.2 Baso % (Auto) 0.2 Absolute Neuts (auto) 9.5 H Absolute Lymphs (auto) 1.8 Absolute Monos (auto) 1.0 Absolute Eos (auto) 0.0 Absolute Basos (auto) 0.0 Seg Neutrophils % 76.5 Sodium 133.6 L Potassium 4.0 Chloride 104 Carbon Dioxide 24 Anion Gap 6 BUN 12 Creatinine 0.68 Est GFR ( Amer) > 60 Est GFR (MDRD) Non-Af > 60 Glucose 99 Calcium 9.6 Total Bilirubin 1.4 H Direct Bilirubin 0.0 Neonat Total Bilirubin Not Reportable Neonat Direct Bilirubin Not Reportable Neonat Indirect Bili Not Reportable AST 21 ALT 13 Alkaline Phosphatase 57 Total Protein 7.8 Albumin 4.5 Serum HCG, Qual NEGATIVE Urine Color Urine Appearance Urine pH Ur Specific [place] Urine Protein Urine Glucose (UA) Urine Ketones Urine Blood Urine Nitrite Urine Bilirubin Urine Urobilinogen Ur Leukocyte Esterase Urine WBC (Auto) Urine RBC (Auto) Urine Bacteria (Auto) Urine WBC Clumps Squamous Epi Cells Auto Urine Mucus (Auto) Urine Ascorbic Acid 10/27/19 22:53 WBC RBC Hgb Hct MCV MCH MCHC RDW Plt Count Lymph % (Auto) [place] % (Auto) Eos % (Auto) Baso % (Auto) Absolute Neuts (auto) Absolute Lymphs (auto) Absolute Monos (auto) Absolute Eos (auto) Absolute Basos (auto) Seg Neutrophils % Sodium Potassium Chloride Carbon Dioxide Anion Gap BUN Creatinine Est GFR ( Amer) Est GFR (MDRD) Non-Af Glucose Calcium Total Bilirubin Direct Bilirubin Neonat Total Bilirubin Neonat Direct Bilirubin Neonat Indirect Bili AST ALT Alkaline Phosphatase Total Protein Albumin Serum HCG, Qual Urine Color YELLOW Urine Appearance CLOUDY Urine pH 6.0 Ur Specific [place] 1.014 Urine Protein 30 H Urine Glucose (UA) NEGATIVE Urine Ketones 80 H Urine Blood LARGE H Urine Nitrite POSITIVE H Urine Bilirubin NEGATIVE Urine Urobilinogen NEGATIVE Ur Leukocyte Esterase LARGE H Urine WBC (Auto) >182 Urine RBC (Auto) 30 Urine Bacteria (Auto) 3+ Urine WBC Clumps MOD Squamous Epi Cells Auto 7 Urine Mucus (Auto) MOD Urine Ascorbic Acid NEGATIVE Patient appears well, nontoxic. She does have a nitrite positive urinalysis. She has a leukocytosis of 12.4. Her vital signs are normal, she has not had a fever she has not vomited while in the emergency department. She is appropriate for outpatient oral antibiotic therapy. She will be given a dose of IM ceftriaxone, 1 g. She will then be started on Bactrim as she states she cannot afford Cipro. ED return precautions discussed, patient verbalized understanding and agreement with same. - Vital Signs Vital signs: Temp Pulse Resp BP Pulse Ox 98.3 F 88 20 124/81 100 10/28/19 03:52 10/28/19 03:52 10/28/19 03:52 10/28/19 03:52 10/28/19 03:52 - Laboratory Result Diagrams: 10/27/19 22:53 10/27/19 22:53 Laboratory results interpreted by me: 10/27/19 10/27/19 10/27/19 22:53 22:53 22:53 WBC 12.4 H MCH 33.8 H Absolute Neuts (auto) 9.5 H Sodium 133.6 L Total Bilirubin 1.4 H Urine Protein 30 H Urine Ketones 80 H Urine Blood LARGE H Urine Nitrite POSITIVE H Ur Leukocyte Esterase LARGE H Discharge - Discharge Clinical Impression: Pyelonephritis Condition: Stable Disposition: HOME, SELF-CARE Additional Instructions: You have been diagnosed with a condition called pyelonephritis which is an infection involving your kidneys and bladder. You have been given a dose of antibiotics here in the emergency department to help begin to treat this infection. Your also being sent home on antibiotics. Please start taking these later on today when you fill the prescription. Complete the course even if you feel better. Please return if you have persistent vomiting, pass out, have worsening pain, become unable to tolerate fluids, or have any other symptoms that are concerning to you. Please follow-up with your primary care physician in the next 24-48 hours. Prescriptions: Sulfamethoxazole/Trimethoprim [Bactrim Ds Tablet] 1 tab PO BID #28 tablet Forms: Return to Work
== END 2019-10-28 03:58 | disposition home or self-care (01) ==
LOC: ER 20:28
DX: R10.9 Unspecified abdominal pain (principal); N12 Tubulo-interstitial nephritis, not specified as acute or chronic; T36.8X6A Underdosing of other systemic antibiotics, initial encounter; Z91.120 Patient's intentional underdosing of medication regimen due to financial hardship; Z91.14 Patient's other noncompliance with medication regimen; F17.200 Nicotine dependence, unspecified, uncomplicated; J45.909 Unspecified asthma, uncomplicated
CPT/HCPCS: 99284; 96372; 36415; 87086; 84703; 85025; 87088; 80053; 81001; S0119; J3490; J0696; 87186

== ENCOUNTER 2019-10-28 13:33 | Emergency (ER) | payer SELFPAY ==
[2019-10-28] MEDS ORDERED: GENTAMICIN SULFATE INJ 80 MG/2 ML VIAL IM ONE (14:06)
[2019-10-28] MEDS ORDERED: CEFTRIAXONE INJ 1000 MG VIAL IM ONE (14:07)
--- NOTE | 2019-10-28 14:08 | ER Document Report ---
ED General - General Chief Complaint: Fever Stated Complaint: CONGESTION,FEVER, BACK PAIN,NAUSEA, VOMITING Time Seen by Provider: 10/28/19 14:00 Mode of Arrival: Ambulatory Information source: Patient Notes: 10/28/19 14:26 - ED Nursing Note by MIGUEL HUERTA [facility] Num: [id number] : 1990 Patient Age: 29 Pt. reports to the ED via POV with C/O fever R/T kidney infection. Pt. states that she was here yesterday and was told she has a kidney infection and to come back if she gets a fever. Pt. developed fever last night and complaining of back pain so she came back. A+O x4. respirations even and unlabored/ 07/2019 Myriam notes Notes: This is a 28-year-old female appears her stated age in a mild amount of distress. She is tearful. Vital signs reviewed, please refer to chart. Head is normocephalic, atraumatic. Pupils equal round, reactive to light. Neck is supple without meningismus. Heart is regular rate and rhythm. Lungs are clear to auscultation bilaterally. Abdomen is soft, mildly tender in the left upper quadrant without rebound or guarding positive left-sided CVA tenderness. Bandar, normoactive bowel sounds throughout. Extremities without cyanosis, clubbing. Posterior calves are nontender. Peripheral pulses are equal. Skin is warm and dry. Patient is awake, alert, neurological exam is nonfocal. Course - Re-evaluation Re-evalutation: 08/05/19 14:52 Patient presents to the emergency department for evaluation. She had laboratory investigations and imaging is ordered through triage. It does seem that she has urinary tract infection, urine was sent for culture. Rocephin was ordered. I am concerned about a con commitment stone in the light of the patient's significant pain. If this is simple pyelonephritis, I do believe it is reasonable to discharge the patient home on oral antibiotics, she has no other significant medical comorbidities. We will try and help her pain with Toradol, patient is stable at this time, we will continue to monitor. 08/05/19 16:[address] scan fails to reveal any signs of obstructive stone or hyd ronephrosis. I suspect this is all pyelonephritis. Again she has no significant comorbidities, I do believe that outpatient treatment is appropriate. We will send her home with antibiotics. She is to follow-up with primary care provider this week, return to the ED with worsening or new concerning symptoms of any sort. The patient is reminded that she should have her urine rechecked next week. She is feeling improved and is amenable to discharge. NOTE THAT URINE CULTURE POSITIVE FOR KLEBSIELLA Sushil notes yesterday Otherwise healthy 29-year-old female presents the emergency department concern for right flank pain. She states pain started last night. She reports that she had a recent diagnosis of urinary tract infection but never got her antibiotic filled and she states it was too expensive. She denies any fever, chills, nausea, vomiting or diarrhea. my notes 29-year-old female who works at [employer] in [facility] advised 1 month ago she had left-sided flank pain UTI symptoms and was treated but for several days now she has had right flank pain that was diagnosed as UTI last night with WBCs on urine as well as 12,000 white count. Today she continues with fever and just feels poorly. She denies any dysuria. Patient reports she usually drinks sodas and sweet tea at her job but has switched to water and cranberry juice to help small away any urinary tract infections. She denies any nausea vomiting diarrhea constipation. She does have fevers and therefore was placed and COVID- 19 section #7 bed and Selin RN is her designated nurse. TRAVEL OUTSIDE OF THE [place] IN LAST 30 DAYS: No - HPI Onset: Last week Onset/Duration: Sudden Quality of pain: Achy Severity: Moderate Pain Level: 2 Associated symptoms: Fever, Other - diffuse back pain Exacerbated by: Denies Relieved by: Denies Similar symptoms previously: Yes Recently seen / treated by doctor: Yes - Related Data Allergies/Adverse Reactions: No Known Allergies Allergy (Verified 10/28/19 15:17) Past Medical History - General Information source: Patient - Social History Smoking Status: Never Smoker Cigarette use (# per day): No Chew tobacco use (# tins/day): No Smoking Education Provided: No Frequency of alcohol use: None Drug Abuse: None Lives with: Family Family History: CAD - grandmother, Hypertension, Other - Kidney stone Patient has suicidal ideation: No Patient has homicidal ideation: No Pulmonary Medical History: Reports: Hx Asthma Renal/ Medical History: Reports: Hx Ovarian Cysts. Denies: Hx Peritoneal Dialysis Past Surgical History: Reports: Other - eye surgery - Immunizations Immunizations up to date: Yes Hx Diphtheria, Pertussis, Tetanus Vaccination: Yes - 2012 Review of Systems - Review of Systems Constitutional: See HPI, Fever, Recent illness EENT: No symptoms reported Cardiovascular: No symptoms reported Respiratory: No symptoms reported Gastrointestinal: No symptoms reported Genitourinary: No symptoms reported Female Genitourinary: No symptoms reported Musculoskeletal: See HPI, Back pain Skin: No symptoms reported Hematologic/Lymphatic: No symptoms reported Neurological/Psychological: No symptoms reported Physical Exam - Vital signs Vitals: Temp Pulse Resp BP Pulse Ox 100.0 F 99 18 118/87 H 99 10/28/19 13:42 10/28/19 13:42 10/28/19 13:42 10/28/19 13:42 10/28/19 13:42 Interpretation: Tachycardic, Febrile - General General appearance: Alert - HEENT Head: Normocephalic, Atraumatic Eyes: Normal Pupils: PERRL - Respiratory Respiratory status: No respiratory distress Chest status: Nontender Breath sounds: Normal Chest palpation: Normal - Cardiovascular Rhythm: Regular Heart sounds: Normal auscultation Murmur: No - Abdominal Inspection: Normal Distension: No distension Bowel sounds: Normal Tenderness: Nontender Organomegaly: No organomegaly - Rectal Hemorrhoids: Other - deferred - Genitourinary Bimanuel exam: Other - deferred - Back Back: Normal - Extremities General upper extremity: Normal inspection General lower extremity: Normal inspection - Neurological Neuro grossly intact: Yes Cognition: Normal Orientation: AAOx4 Yarnell Coma Scale Eye Opening: Spontaneous Michael Coma Scale Verbal: Oriented Michael Coma Scale Motor: Obeys Commands Yarnell Coma Scale Total: 15 Speech: Normal Motor strength normal: LUE, RUE, LLE, RLE Sensory: Normal - Psychological Associated symptoms: Normal affect - Skin Skin Temperature: Warm Skin Moisture: Dry Skin Color: Normal Course - Vital Signs Vital signs: Temp Pulse Resp BP Pulse Ox 99.8 F 86 17 121/82 100 10/28/19 16:25 10/28/19 16:25 10/28/19 16:25 10/28/19 16:25 10/28/19 16:25 - Diagnostic Test Radiology reviewed: Reports reviewed Critical Care Note - Critical Care Note Comments: I was called by [facility] @1520 because of a "discrepancy in directions" for Percocet and therefore have to resend the Percocet prescription. Discharge - Discharge Clinical Impression: Pyelonephritis, Fever UTI (urinary tract infection) Qualifiers: Urinary tract infection type: acute cystitis Hematuria presence: without hematuria Qualified Code(s): N30.00 - Acute cystitis without hematuria Condition: Good Disposition: HOME, SELF-CARE Additional Instructions: Encourage fluids like water and avoid any sodas or sweet tea for least 1 week. Take medicines as directed and off work as directed. Take Tylenol for fever. Prescriptions: Ciprofloxacin HCl [Cipro 500 mg Tablet] 500 mg PO BID #20 tablet Oxycodone HCl/Acetaminophen [Percocet 5-325 mg Tablet] 1 tab PO ASDIR PRN #15 tab PRN Reason: Pain Scale Of 1 Oxycodone HCl/Acetaminophen [Percocet 5-325 mg Tablet] 1 tab PO TID #15 tablet
[2019-10-28 16:27] VITALS: BP 121/82
--- NOTE | 2019-10-28 16:52 | RADIOLOGY REPORT (SQ) ---
EXAM DESCRIPTION: CT ABD/PELVIS NO ORAL OR IV IMAGES COMPLETED DATE/TIME: 10/28/2019 4:15 pm REASON FOR STUDY: back pain COMPARISON: 08/05/2019 TECHNIQUE: CT scan of the abdomen and pelvis performed without intravenous or oral contrast. Images reviewed with lung, soft tissue, and bone windows. Reconstructed coronal and sagittal MPR images revi ewed. All images stored on PACS. All CT scanners at this facility use dose modulation, iterative reconstruction, and/or weight based d osing when appropriate to reduce radiation dose to as low as reasonably achievable (ALARA). [facility]: Dose Right [facility]: CareDose [facility]: Dose Right [facility]: Teradose 4D [facility]: Smart [employer] RADIATION DOSE: CT Rad equipment meets quality standard of care and radiation dose reduction techniq ues were employed. CTDIvol: 13.5 mGy. DLP: 761 mGy-cm.mGy. LIMITATIONS: None. FINDINGS: LOWER CHEST: No significant findings. No nodules or infiltrates. NON-CONTRASTED LIVER, SPLEEN, ADRENALS: Evaluation limited by lack of IV contrast. No identified sign ificant masses. PANCREAS: No masses. No peripancreatic inflammatory changes. GALLBLADDER: No identified stones by CT criteria. No inflammatory changes to suggest cholecystitis. RIGHT KIDNEY AND URETER: No suspicious masses. Assessment limited by lack of IV contrast. No signif icant calcifications. No hydronephrosis or hydroureter. LEFT KIDNEY AND URETER: No suspicious masses. Assessment limited by lack of IV contrast. No signifi cant calcifications. No hydronephrosis or hydroureter. AORTA AND RETROPERITONEUM: No aneurysm. No retroperitoneal masses or adenopathy. BOWEL AND PERITONEAL CAVITY: No obvious masses or inflammatory changes. No free fluid. APPENDIX: Normal. PELVIS, BLADDER, AND ABDOMINAL WALL:Unremarkable urinary bladder. 5.6 cm uterine fundal leiomyoma, s table. Subcutaneous stranding and gas within the left gluteal region, likely from subcutaneous injec tion. Scattered pelvic phleboliths, stable. BONES: No acute bony abnormality. No suspicious lytic or blastic osseous lesions. OTHER: No other significant finding. IMPRESSION: 1. No evidence of acute intra-abdominal/ pelvic process on this noncontrast exam. 2. Uterine leiomyoma. COMMENT: Quality ID # [id number]: Final reports with documentation of one or more dose reduction techniques (e.g., Automated exposure control, adjustment of the mA and/or kV according to patient size, use of iterative reconstruction technique) TECHNICAL DOCUMENTATION: JOB ID: [id number] 2010 [employer]- All Rights Reserved Reading location - IP/workstation name: [email or web address]
[2019-10-28 17:19] LABS: CHLAM PCR NOT DETECTED (NOT DETECT)
== END 2019-10-28 17:55 | disposition home or self-care (01) ==
LOC: ER 13:33
DX: N12 Tubulo-interstitial nephritis, not specified as acute or chronic (principal); N30.00 Acute cystitis without hematuria; R50.9 Fever, unspecified; R00.0 Tachycardia, unspecified; R09.89 Other specified symptoms and signs involving the circulatory and respiratory systems; M54.9 Dorsalgia, unspecified; R11.2 Nausea with vomiting, unspecified; Z20.828 Contact with and (suspected) exposure to other viral communicable diseases; J45.909 Unspecified asthma, uncomplicated
CPT/HCPCS: 99283; 96372; 87086; 81025; 87491; 87591; 74176; J1580; J0696

== ENCOUNTER 2020-03-18 12:55 | Emergency (ER) | payer SELFPAY ==
--- NOTE | 2020-03-18 13:13 | ER Document Report ---
ED Medical Screen (RME) - General Chief Complaint: Pelvic Pain Stated Complaint: PELVIC PAIN Time Seen by Provider: 03/18/20 13:09 Notes: Patient presents complaining of lower pelvic pain. Patient reports that her menstrual cycle was late although she does have vaginal bleeding today. Patient denies any urinary symptoms. Patient denies any concern about STI. Patient states she has a known history of fibroid uterus. I have greeted and performed a rapid initial assessment of this patient. A comprehensive ED assessment and evaluation of the patient, analysis of test results and completion of the medical decision making process will be conducted by additional ED providers. TRAVEL OUTSIDE OF THE [place] IN LAST 30 DAYS: No - Related Data Allergies/Adverse Reactions: No Known Allergies Allergy (Verified 10/28/19 15:17) Past Medical History - Social History Family history: Reviewed & Not Pertinent Pulmonary Medical History: Reports: Hx Asthma Renal/ Medical History: Reports: Hx Ovarian Cysts. Denies: Hx Peritoneal Dialysis Past Surgical History: Reports: Other - eye surgery - Immunizations Immunizations up to date: Yes Hx Diphtheria, Pertussis, Tetanus Vaccination: Yes - 2012 Physical Exam - Abdominal Tenderness: Tender - Lower pelvic
--- NOTE | 2020-03-18 13:35 | ER Document Report ---
ED General - General Chief Complaint: Pelvic Pain Stated Complaint: PELVIC PAIN Time Seen by Provider: 03/18/20 13:09 Primary Care Provider: [facility] [Provider Group] - Follow up in 3-5 days JASSON SCHRADER MD [ACTIVE PROVISIONAL STAFF] - Follow up in 3-5 days (for cotton opener follow up) TRAVEL OUTSIDE OF THE [place] IN LAST 30 DAYS: No - HPI Notes: 29-year-old female to the emergency department with complaints of pelvic pain that is been progressively getting worse since last night. She states that she has been dealing with this pelvic pain for some time. However it got severe overnight. She is not taking anything for the pain. She states that she has been told she has a fibroid. She states she may have had a little bit of vaginal discharge prior to her vaginal bleeding beginning last night. She has not seen a HEALTH AND PHYSICAL EDUCATION PROFESSOR for the fibroid. Denies any other past medical history of ovarian cysts. She denies any fevers, chills, nausea, vomiting, diarrhea. She is not concerned for an STD. Last menstrual period was approximately 1 month ago. - Related Data Allergies/Adverse Reactions: No Known Allergies Allergy (Verified 10/28/19 15:17) Past Medical History - General Information source: Patient - Social History Smoking Status: Current Every Day Smoker Frequency of alcohol use: Occasional Drug Abuse: Marijuana Family History: CAD - grandmother, Hypertension, Other - Kidney stone Pulmonary Medical History: Reports: Hx Asthma Renal/ Medical History: Reports: Hx Ovarian Cysts. Denies: Hx Peritoneal Dialysis Past Surgical History: Reports: Other - eye surgery - Immunizations Immunizations up to date: Yes Hx Diphtheria, Pertussis, Tetanus Vaccination: Yes - 2012 Review of Systems - Review of Systems Constitutional: denies: Chills, Fever EENT: No symptoms reported Cardiovascular: denies: Chest pain, Palpitations, Heart racing, Dizziness, Lightheaded Respiratory: denies: Cough, Short of breath Gastrointestinal: Abdominal pain. denies: Diarrhea, Nausea, Vomiting, Constipation Genitourinary: denies: Frequency, Flank pain Female Genitourinary: See HPI, Vaginal bleeding Musculoskeletal: No symptoms reported Skin: No symptoms reported Hematologic/Lymphatic: No symptoms reported Neurological/Psychological: No symptoms reported -: Yes All other systems reviewed and negative Physical Exam - Vital signs Vitals: Temp Pulse Resp BP Pulse Ox 98.2 F 98 18 129/83 H 97 03/18/20 13:11 03/18/20 13:11 03/18/20 13:11 03/18/20 13:11 03/18/20 13:11 Interpretation: Normal - Notes Notes: PHYSICAL EXAMINATION: GENERAL: Well-appearing, well-nourished and in no acute distress. HEAD: Atraumatic, normocephalic. EYES: Pupils equal round and reactive to light, extraocular movements intact, sclera anicteric, conjunctiva are normal. ENT: nares patent, oropharynx clear without exudates. Moist mucous membranes. NECK: Normal range of motion, supple without lymphadenopathy LUNGS: Breath sounds clear to auscultation bilaterally and equal. No wheezes rales or rhonchi. HEART: Regular rate and rhythm without murmurs ABDOMEN: Soft, obese, tenderness to palpation over the suprapubic abdomen. no guarding, no rebound. No masses appreciated. No CVA tenderness EXTREMITIES: Normal range of motion, no pitting or edema. No cyanosis. NEUROLOGICAL: No focal neurological deficits. Moves all extremities spontaneously and on command. PSYCH: Normal mood, normal affect. SKIN: Warm, Dry, normal turgor, no rashes or lesions noted. Course - Re-evaluation Re-evalutation: 03/18/20 Impression: pelvic pain, uterine fibroids. I discussed with the patient the need for follow-up with HEALTH AND PHYSICAL EDUCATION PROFESSOR. We will send home with small amount of pain medicine. We will also give information for [facility]. Encouraged to return if worsening symptoms. Lab work is otherwise reassuring. - Vital Signs Vital signs: Temp Pulse Resp BP Pulse Ox 98.7 F 58 L 16 112/68 100 03/18/20 16:20 03/18/20 16:20 03/18/20 16:20 03/18/20 16:20 03/18/20 16:20 - Laboratory Results Result Diagrams: 03/18/20 13:55 03/18/20 13:55 Laboratory Results Interpreted: 03/18/20 13:00 Urine Protein 30 H Urine Blood MODERATE H Urine Urobilinogen 4.0 H Ur Leukocyte Esterase TRACE H Critical Laboratory Results Reviewed: No Critical Results - Radiology Results Critical Radiology Results Reviewed: No Critical Results Discharge - Discharge Clinical Impression: Pelvic pain Uterine fibroid Qualifiers: Uterine leiomyoma location: unspecified location Qualified Code(s): D25.9 - Leiomyoma of uterus, unspecified Condition: Stable Disposition: HOME, SELF-CARE Instructions: Pelvic Pain ([facility]) Additional Instructions: Please follow-up with [facility] as well as HEALTH AND PHYSICAL EDUCATION PROFESSOR for further evaluation and management for uterine fibroids. Please take medicine as prescribed. Return if you have worsening pain, nausea, vomiting, fevers. Push fluids. Apply warm compresses to the pelvis. Prescriptions: Oxycodone HCl/Acetaminophen [Percocet 5-325 mg Tablet] 1 - 2 tab PO Q6H PRN #10 tablet PRN Reason: Ondansetron [Zofran Odt 4 mg Tablet] 1 - 2 tab PO Q4H PRN #15 tab.rapdis PRN Reason: For Nausea/Vomiting Forms: Return to Work Referrals: [facility] [Provider Group] - Follow up in 3-5 days JASSON SCHRADER MD [ACTIVE PROVISIONAL STAFF] - Follow up in 3-5 days (for cotton opener follow up)
[2020-03-18 13:41] LABS: AMORPHOUS SEDIMENT,URINE 2+ /HPF; APPEARANCE,URINE TURBID; BILIRUBIN,URINE NEGATIVE (NEGATIVE); COLOR,URINE YELLOW; GLUCOSE, URINE NEGATIVE (NEGATIVE); KETONES,URINE NEGATIVE (NEGATIVE); LEUKOCYTE ESTERASE,URINE TRACE (NEGATIVE); NITRITE,URINE NEGATIVE (NEGATIVE); PROTEIN,URINE 30 mg/dL (NEGATIVE); URINE SPECIFIC GRAVITY 1.019
[2020-03-18] MEDS ORDERED: ONDANSETRON HCL INJ/PF 4 MG/2 ML SDV ONE (14:34)
[2020-03-18] MEDS ORDERED: KETOROLAC TROMETHAMINE INJ/PF 30 MG/1 ML SDV ONE (14:34)
[2020-03-18 14:53] LABS: ABSOLUTE EOSINOPHILS # (AUTO) 0.2 10^3/uL (0.0-0.6); ABSOLUTE LYMPHOCYTES (AUTO) 3.6 10^3/uL (0.5-4.7); ABSOLUTE MONOCYTES (AUTO) 0.7 10^3/uL (0.1-1.4); ABSOLUTE NEUT (AUTO) 4.5 10^3/uL (1.7-8.2); BASOPHILS % (AUTO) 0.4 % (0-2); EOSINOPHILS % (AUTO) 2.1 % (0-6); HEMATOCRIT 42.2 % (36.0-47.0); HEMOGLOBIN 14.9 g/dL (12.0-15.5); LYMPHOCYTES % (AUTO) 39.8 % (13-45); MEAN CORPUSCULAR HEMOGLOBIN 33.1 pg (27.0-33.4); MEAN CORPUSCULAR HGB CONC 35.3 g/dL (32.0-36.0); MEAN CORPUSCULAR VOLUME 94 fl (80-97); MONOCYTES % (AUTO) 7.8 % (3-13); PLATELET COUNT 286 10^3/uL (150-450); RED BLOOD COUNT 4.51 10^6/uL (3.72-5.28); RED CELL DISTRIBUTION WIDTH 11.5 % (11.5-14.0); SEGMENTED NEUTROPHILS % (AUTO) 49.9 % (42-78); TOTAL CELLS COUNTED % (AUTO) 100 %
[2020-03-18] MEDS ORDERED: ONDANSETRON HCL INJ/PF 4 MG/2 ML SDV IV ONE (15:05)
[2020-03-18] MEDS ORDERED: KETOROLAC TROMETHAMINE INJ/PF 30 MG/1 ML SDV IV ONE (15:05)
[2020-03-18 15:11] LABS: ANION GAP 5 (5-19); BLOOD UREA NITROGEN 13 mg/dL (7-20); CALCIUM 9.9 mg/dL (8.4-10.2); CARBON DIOXIDE 28 mmol/L (22-30); CHLORIDE 106 mmol/L (98-107); GLUCOSE 77 mg/dL (75-110); POTASSIUM 4.1 mmol/L (3.6-5.0)
[2020-03-18] MEDS ORDERED: MORPHINE SULFATE 10 MG/ML INJ IV ONE (15:39)
--- NOTE | 2020-03-18 16:03 | RADIOLOGY REPORT (SQ) ---
EXAM DESCRIPTION: U/S NON-OB PELVIS W/O DOP IMAGES COMPLETED DATE/TIME: 03/18/2020 3:51 pm REASON FOR STUDY: PELVIC PAIN COMPARISON: 06/20/2015 TECHNIQUE: Dynamic and static grayscale images acquired of the pelvis via transabdominal approach an d recorded on PACS. Additional selected color Doppler and spectral images recorded. LIMITATIONS: None. FINDINGS: UTERUS: Uterine fibroids. The largest measures 5.4 x 4.5 x 4.7 cm. ENDOMETRIAL STRIPE: No focal or generalized thickening. No masses. CERVIX: 2 cm. No nabothian cysts. RIGHT OVARY AND DOPPLER: Normal size. No worrisome masses. Normal arterial vascular flow without evid ence for torsion. LEFT OVARY AND DOPPLER: Ovary not seen. FREE FLUID: None noted. OTHER: No other significant finding. MEASUREMENTS: UTERUS: 6 x 3.5 x 3.4 cm. ENDOMETRIAL STRIPE: 10 mm. RIGHT OVARY: 2.6 x 2.5 x 1.9 cm. LEFT OVARY: Ovary not seen. IMPRESSION: Multiple uterine fibroids. The largest measures about 5 cm. No other significant findi ng. TECHNICAL DOCUMENTATION: JOB ID: [id number] 2010 [employer]@- All Rights Reserved Rev-08/16 Reading location - IP/workstation name: [email or web address]
[2020-03-18 16:21] LABS: CHLAM PCR NOT DETECTED (NOT DETECT)
[2020-03-18 16:32] VITALS: BP 112/68
== END 2020-03-18 16:38 | disposition home or self-care (01) ==
LOC: ER 12:55
DX: R10.2 Pelvic and perineal pain (principal); D25.9 Leiomyoma of uterus, unspecified; F17.200 Nicotine dependence, unspecified, uncomplicated
CPT/HCPCS: 99285; 96374; 96375; 36415; 85025; 81025; 80048; 81001; 87491; 87591; 83880; 76856; J1885; J2270; J2405